=== PATIENT | female | born 1950 | race Caucasian/White ===

== ENCOUNTER 2019-10-04 08:59 | Day surgery (SDC) | payer OTHER ==
[~2019-10-04] VITALS: Ht 154.9 cm; Wt 70.8 kg
--- NOTE | ~2019-10-04 | O ---
[facility] [place] [address] OPERATIVE REPORT Name: CATALINA VEGA Room #: 150-6 [facility] M.R.#: [id number] Admission: 10/04/19 Attend Phys: REGINE Pitts Discharge: Date of : 50 Report #: [id number] THIS REPORT FOR: cc: Liss Ordaz MD, Stephanie B. MD Goldstein, Jacob B. DPM ~ CC: Ad Ordaz DATE OF SERVICE: 10/04/2019 PREOPERATIVE DIAGNOSES: Hallux abductovalgus with metatarsus primus varus, left foot; hypermobility tarsometatarsal, left foot; hammertoe, second digit, left foot and contracture second metatarsophalangeal joint left foot. POSTOPERATIVE DIAGNOSES: Hallux abductovalgus with metatarsus primus varus, left foot; hypermobility tarsometatarsal, left foot; hammertoe, second digit, left foot and contracture second metatarsophalangeal joint left foot. PROCEDURES: Lapidus arthrodesis first metatarsocuneiform joint, left foot; additional tarsometatarsal arthrodesis, left foot; proximal interphalangeal joint arthrodesis, second toe, left foot; capsulotomy, second metatarsophalangeal joint, left foot. ANESTHESIA: General endotracheal intubation. HEMOSTASIS: Thigh tourniquet 300 mmHg. ESTIMATED BLOOD LOSS: Less than 5 mL. COMPLICATIONS: None. DESCRIPTION OF PROCEDURE: The patient was taken to the OR in satisfactory condition and placed on the table in the supine position. Following satisfactory administration of general endotracheal intubation anesthesia, a total of 20 mL of 50:50 mixture in divided doses was used around the first metatarsophalangeal joint and the second toe, left foot. A well-padded thigh tourniquet was first placed on the left thigh. The left lower extremity was prepped and draped in the usual sterile manner. An Esmarch bandage was used to exsanguinate the left lower extremity up to the level of the tourniquet and the tourniquet was inflated to 300 mmHg. Attention was then directed to the dorsal first metatarsocuneiform joint where an incision was made from the proximal portion of the cuneiform to the base of the proximal phalanx of the first toe. The incision was made medial to the course of the extensor tendon. The incision was deepened through sharp and blunt dissection and all bleeders were clamped and bovied as deemed necessary. The incision was carried down through the [address] [address] OPERATIVE REPORT Name: CATALINA VEGA Room #: 150-6 [facility] M.R.#: [id number] Admission: 10/04/19 Attend Phys: REGINE Pitts Discharge: Date of : 50 Report #: [id number] subcutaneous tissue to the level of the lateral joint capsule at the first MPJ. A lateral capsulotomy and sesamoid ligament release was performed. The incision was then deepened to bone at the proximal portion of the incision. The deep fascia was reflected sharply from the metatarsocuneiform joint. The joint was then freed with an osteotome and power sagittal saw. A joystick wire was inserted at the proximal medial aspect of the first metatarsal base. The metatarsal was inverted and free movable frontal plane motion of the metatarsal was appreciated. A fulcrum was then placed at the lateral base of the first metatarsal. After measuring with a cut guide, an incision was made over the second metatarsal shaft. This incision was deepened through with blunt dissection. The positioner guide was placed lateral to the second metatarsal shaft and the cup of the positioner guide was placed over the medial ridge of the first metatarsal. The joystick was rotated in inversion and the positioner guide was tightened. Reduction of the IM angle and derotation of the first metatarsal was evidenced normal sesamoid position and confirmed by fluoroscopy. The positioner guide was then secured with a K wire. A joint seeker was placed at the lateral aspect of the first metatarsocuneiform joint. A cut guide was placed over the joint seeker. Fluoroscopy was used to confirm proper placement of the guide. The guide was secured with K-wires. A power sagittal saw was used to remove the cartilaginous surfaces at the base of the first metatarsal and distal aspect of the cuneiform via the cut guide. The positioner and cut guide was removed. A distractor/compression device was placed over the K-wires. The joint was distracted and the bone slices were excised in total and passed from the table. A copious sterile saline flush was performed. A 2.0 drill bit was used with drill guide to fenestrate both cut surfaces. The arthrodesis site was compressed and a guidewire for a 3.0 lag screw was driven from lateral to medial compressing the arthrodesis site. The proper position and length of the surgical screw was confirmed by fluoroscopy. Excellent apposition of the arthrodesis site was appreciated. A medial plate was placed over the fusion site. It was fixated with screws. A second plate was positioned on the dorsal aspect of the arthrodesis site. This was also fixated with screws and fluoroscopy was used to confirm proper placement of the surgical screws and plates. Excellent reduction of the original deformity was appreciated. A transfixion screw was driven from medial to lateral through the medial cuneiform into the intermediate cuneiform. The deep fascial layer was coapted using #3-0 Vicryl in a continuous running fashion. Subcutaneous tissue was coapted using #4-0 Vicryl in a simple interrupted manner. Skin closure was obtained using #4-0 Prolene in a continuous horizontal mattress fashion. Attention was directed to the second toe, left foot where a linear incision was made over the dorsal PIPJ. The incision was curved over the second metatarsophalangeal joint. The incision was deepened through sharp and blunt dissection. All bleeders were clamped and bovied as deemed necessary. The incision was carried down to the level of the extensor tendon at the PIPJ. A transverse tenotomy was performed and the medial and collateral ligaments were transected. The extensor tendon was reflected both proximally and distally. The cartilaginous surface of the head of the proximal phalanx and base of the middle phalanx was resected [address] [address] OPERATIVE REPORT Name: CATALINA VEGA Room #: 150-6 [facility]#: [id number] Admission: 10/04/19 Attend Phys: REGINE Pitts Discharge: Date of : 50 Report #: [id number] with a power sagittal saw. A guidewire for a 2.0 cannulated screw was driven through the base of the middle phalanx out the end of the toe. The toe was positioned in corrected anatomical alignment and the K wire was driven down the shaft of the proximal phalanx. Countersinking was performed and an appropriate length 2.0 surgical screw was placed over the K wire and driven down the distal, middle and proximal phalanx. The incision was carried down to the level of the joint capsule at the second MPJ. A McGlamry elevator was used to deglove and release the soft tissue attachments around this joint. The extensor tendon was kept intact. Excellent reduction of the contracture of the joint was appreciated to the second toe was noted to lie in a better anatomical position. The K-wires removed and the extensor tendon was coapted using #3-0 Vicryl in a simple interrupted manner. Skin closure was obtained using #4-0 Prolene in a horizontal mattress in simple interrupted fashion. The ankle tourniquet was released and normal vascular status returned to all digits of the left foot. All incisions were dressed with Betadine impregnated Adaptic, 4 x 4 gauze overlying Ally and Edgar bandage maintaining the corrected alignment of the digits. The patient tolerated the procedure and anesthesia well and left the OR in satisfactory condition with vital signs stable. By: 41 15 Ad Newman DPM /charisse
[~2019-10-04 08:59] MED LIST: ASA81BEC PO; CENTRUM SILVER1 EAC5 PO; DULOXETINE HCL60 MG PO; FLONASE 0.05%50 MCG NASAL; FLUTICASONE-SA1 EAC3 INH; NEXIUM40 MG PO; PRAMIPEXOLE D0.75 MG PO; PROAIR HFA8.5 GM INH; SIMVASTATIN40 MG PO; SINGULAIR 10 MG10 M1 PO; XANAX 0.25 MG0.25 MG PO
[2019-10-04 09:25] LABS: ABSOLUTE NEUTROPHILS 4.6 thou/uL (1.4-8.2); BASOPHILS 0.8 % (0.0-2.0); HEMATOCRIT 45.4 % (37.0-47.0); HEMOGLOBIN 15.4 gm/dL (12.0-15.0); LYMPHOCYTES 28.9 % (24.0-44.0); MCHC 33.9 g/dL (28.0-37.0); MCV 94.4 fL (80.0-100.0); MONOCYTES 6.6 % (1.0-8.0); PLATELET COUNT 265 thou/uL (150-400); POLYS 60.7 % (36.0-66.0); RBC 4.81 mil/uL (4.20-5.00); RDW 14.2 % (10.5-14.5); WBC 7.5 thou/uL (4.0-11.0)
[2019-10-04 09:35] LABS: CREATININE 0.8 mg/dL (0.6-1.0); POTASSIUM 4.1 mmol/L (3.5-5.1)
[2019-10-04 10:03] VITALS: BP 139/57
[2019-10-04 14:18] VITALS: BP 139/57
--- NOTE | 2019-10-05 08:19 | EKG ---
[facility] [place] [address] ELECTROCARDIOGRAM REPORT Name: CATALINA VEGA Room #: 150-6 [facility]..#: [id number] Admission: 10/04/19 Attend Phys: Ad Newman, DP Discharge: Date of : 50 Report #: [id number] THIS REPORT FOR: cc: Liss Ordaz MD, Stephanie B. MD Couchonnal, Luis F. 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
== END 2019-10-04 14:50 | disposition home or self-care (01) ==
LOC: OR 08:59 → TBA 09:07 → OR 11:14
PROVIDERS: Podiatrist
DX: M20.12 Hallux valgus (acquired), left foot (principal); M20.42 Other hammer toe(s) (acquired), left foot; M21.6X2 Other acquired deformities of left foot; M24.575 Contracture, left foot; J43.9 Emphysema, unspecified; E78.00 Pure hypercholesterolemia, unspecified; F32.9 Major depressive disorder, single episode, unspecified; F41.9 Anxiety disorder, unspecified; F17.210 Nicotine dependence, cigarettes, uncomplicated; K21.9 Gastro-esophageal reflux disease without esophagitis; Z98.890 Other specified postprocedural states; Z79.899 Other long term (current) drug therapy; Z96.653 Presence of artificial knee joint, bilateral
CPT/HCPCS: 50010; 50101; 50386; 50951; 53341; 56526; 57091; 57180; 57910; 57946; 57947; 57949; 57950; 62110; 62900; 70005